=== PATIENT | female | born 1945 | race Caucasian/White ===

== ENCOUNTER → 2017-06-21 | Outpatient (CLI) | payer OTHER ==
--- NOTE | 2017-06-18 10:26 | MH ---
cc: OLIVIER RAZO DATE OF ADMISSION 06/21/2017 ADMISSION DIAGNOSIS Narrow anterior chamber angle right eye. HISTORY OF PRESENT ILLNESS This 72-year-old white female is coming through [facility] for the purpose of a laser peripheral iridectomy of the right eye. She was found to have narrow anterior chamber angles with potential angle closure on examination and has elected to have laser peripheral iridectomy starting with the right eye at this time. PAST MEDICAL HISTORY The patient has a history of hyperlipidemia. PAST SURGICAL HISTORY The patient has a history of hysterectomy and eye muscle surgery. MEDICATIONS Daily medications, the patient takes no daily medications. ALLERGIES No known allergies. SOCIAL HISTORY Noncontributory. FAMILY HISTORY Positive for mother with cataract. REVIEW OF SYSTEMS Noncontributory OCULAR EXAM On ocular exam, the patient's best corrected visual acuity is 20/20 -2 in the right eye and 20/20 -1 in the left. Visual zhou are full to confrontation testing. Extraocular muscle exam reveals full versions with exotropia at distance and near. Pupils are 3 mm equal, round, and reactive to light without afferent defect. Anterior segment examination shows narrow anterior chamber angles with potential angle closure on gonioscopy in each eye. Intraocular pressure is 24 in the right eye and 22 in the left eye by applanation tonometry. Dilated fundus exam revealed sharp disk with cup-to-disk ratio 0.25 bilaterally. The macula is clear bilaterally. Choroidal nevus is noted superiorly in the right eye and he is one disk diameter in size. The background in the left eye is within normal limits. IMPRESSION 1. Narrow anterior chamber angles with potential angle closure 2. Glaucoma suspect low-risk both eyes 3. Choroidal nevus right eye PLAN The plan is laser peripheral iridectomy of the right eye through [facility]. MD NAHUN Andres/JC /11:17 AM /10:29 AM
[~2017-06-21] MED LIST: BALANCED SALT SOLN OPHT IRRIG 15 ML BTL ONE; BRIMONIDINE TARTRATE 0.15% OPHT SOLN 5 ML BTL ONE; HYPROMELLOSE 0.3 % OPTH GEL 10 GM (0.34 FL OZ) TUBE ONE; PILOCARPINE HCL 2% OPHT SOLN 15 ML BTL ONE; PROPARACAINE HCL 0.5% OPHT SOLN 15 ML BTL ONE; TROPICAMIDE 1% OPHT SOLN 15 ML BTL ONE; prednisoLONE ACETATE 1% OPHT SUSP 5 ML BTL ONE
--- NOTE | 2017-06-23 13:21 | MP ---
cc: OLIVIER RAZO DATE OF SURGERY: 06/21/2017 PREOPERATIVE DIAGNOSIS Narrow anterior chamber angle, right eye. POSTOPERATIVE DIAGNOSIS Narrow anterior chamber angle, right eye. OPERATION Laser peripheral iridectomy, right eye. ANESTHESIA Topical. COMPLICATIONS None. INDICATIONS FOR PROCEDURE See History and Physical previously dictated. PROCEDURE The patient arrived at [facility]. Blood pressure was 129/74, pulse 69, respirations 16. A drop of Alphagan P and 2% Pilocarpine were instilled in the right eye. A drop of Ophthaine was instilled in the right eye and a laser iridectomy lens was placed on the anterior surface of the right cornea. Peripheral iridectomy was carried out utilizing the following procedure: Argon laser was first utilized forming a crater in the iris. 15 exposures of 400 milliwatts were used with a spot size of 200 microns for 0.2 seconds. Then 53 exposures of 950 milliwatts were used with the spot size of 50 microns, 0.1 second exposure time. Following this, YAG laser was utilized to complete the iridectomy. 28 exposures of 6.7 millijoules were utilized by the YAG laser to complete the iridectomy. An adequate opening was seen at this time. The iridectomy lens was removed and the eye was irrigated. A drop of Alphagan P was instilled. The patient was given a prescription for Pred Forte to be utilized four times a day, and has an appointment for follow-up on the first postoperative day in my office. The patient left the [facility] in satisfactory condition. MD NAHUN Andres/BT /11:38 AM /1:05 PM .2
== END ==
LOC: PHSDC 10:01
PROVIDERS: ATTEND Ophthalmology
DX: H40.031 Anatomical narrow angle, right eye (principal)

== ENCOUNTER → 2017-10-25 | Outpatient (CLI) | payer OTHER ==
--- NOTE | 2017-10-20 15:42 | MH ---
cc: OLIVIER RAZO DATE OF ADMISSION: 10/25/2017 ADMITTING DIAGNOSIS: Narrow anterior chamber angle left eye. HISTORY OF PRESENT ILLNESS This 72-year-old white female is coming through [facility] for the purpose of a laser peripheral iridectomy of the left eye. She was found to have narrow anterior chamber angles with potential angle closure and has elected to have laser peripheral iridectomies in both eyes. Her right eye was performed in May of this year and she did well postoperatively and is now coming through for her left eye. PAST MEDICAL HISTORY The patient has a history of hyperlipidemia. PAST SURGICAL HISTORY: 1. Hysterectomy. 2. Eye muscle surgery. 3. Laser peripheral iridectomy in the right eye. MEDICATIONS: She takes no daily medications. ALLERGIES: She has no allergies. SOCIAL HISTORY Noncontributory. FAMILY HISTORY: Family history is positive for mother with cataracts. REVIEW OF SYSTEMS Noncontributory. OCULAR EXAMINATION: On ocular exam the patient's visual acuity with correction is 20/20 minus 2 in the right eye and 20/20 in the left. Visual zhou are full to confrontation testing. Extraocular muscle exam reveals full versions with exotropia at distance and near intermittently. The anterior segment examination reveals a peripheral iridectomy that is patent in the right eye and narrow anterior chamber angle with potential angle closure on the left. Intraocular pressures is 24 in the right eye and 23 in the left by applanation tonometry. Dilated fundus exam revealed sharp disk with cup-to-disk ratio 0.25 bilaterally. The macula is clear and choroidal nevus is noted superiorly in the right eye, one disk diameter in size. The background of the left eye is within normal limits. IMPRESSION 1. Narrow anterior chamber angle with potential angle closure left eye. 2. Status post laser peripheral iridectomy right eye. PLAN: Laser peripheral iridectomy of the left eye through [facility]. MD NAHUN Andres/BERNA /2:29 PM /3:23 PM
[~2017-10-25] MED LIST changes: -BRIMONIDINE TARTRATE 0.15% OPHT SOLN 5 ML BTL ONE; -TROPICAMIDE 1% OPHT SOLN 15 ML BTL ONE
--- NOTE | 2017-10-25 13:19 | MP ---
cc: OLIVIER RAZO DATE OF SURGERY 10/25/2017 PREOPERATIVE DIAGNOSIS Narrow anterior chamber angle, left eye. POSTOPERATIVE DIAGNOSIS Narrow anterior chamber angle, left eye. OPERATION Laser peripheral iridectomy, left eye. ANESTHESIA Topical COMPLICATIONS None INDICATIONS FOR PROCEDURE See History and Physical previously dictated. PROCEDURE The patient arrived at [facility]. Blood pressure was 132/72, pulse 74, respirations 18. A drop of Alphagan P and 2% Pilocarpine were instilled in the left eye. A drop of Ophthaine was instilled in the left eye and a laser iridectomy lens was placed on the anterior surface of the left cornea. Peripheral iridectomy was carried out utilizing the following procedure: Argon laser was first utilized forming a crater in the iris. 12 exposures of 400 milliwatts were used with a spot size of 200 microns for 0.2 seconds exposure time. Then the Argon laser 81 spots, the parameter is 950 milliwatts of sandoval were used with the spot size of 50 microns and 0.1 second exposure time. Following this, YAG laser was utilized to complete the iridectomy. 13 exposures of 7.1 millijoules were utilized by the YAG laser to complete the iridectomy. An adequate opening was seen at this time. The iridectomy lens was removed and the eye was irrigated. A drop of Alphagan P was instilled. The patient was given a prescription for Pred Forte to be utilized four times a day, and has an appointment for follow-up on the first postoperative day in my office. The patient left the [facility] in satisfactory condition. MD NAHUN Andres/JC /11:46 AM /1:08 PM .8
== END ==
LOC: PHSDC 09:48
PROVIDERS: ATTEND Ophthalmology
DX: H40.032 Anatomical narrow angle, left eye (principal); E78.5 Hyperlipidemia, unspecified